=== PATIENT | female | born 1955 | race Caucasian/White ===

== ENCOUNTER 2016-09-16 13:06 | Emergency (ER) | payer MEDICAID ==
[~2016-09-16] VITALS: Wt 71.5 kg
[2016-09-16] MEDS ORDERED: PENICILLIN G BENZ 1.2 MIL UNIT SYG IM ONE (13:30)
[2016-09-16] MEDS ORDERED: ACETAMINOPHEN 325 MG TAB PO ONE (13:30)
--- NOTE | 2016-09-16 14:12 | ERD ---
ER Documentation Chief Complaint Date/Time DATE: 09/16/16 TIME: 14:10 Chief Complaint THROAT PAIN, FEVER HPI Patient is a 61-year-old female with no past medical history who presents to the ED with sore throat, fever 1 day. She denies sick contacts. States that it hurts when she swallows. However does not have difficulty breathing or speaking. Denies chest pain or cough or shortness of breath. Denies abdominal pain, nausea, vomiting or diarrhea. Denies headache or dizziness, neck pain or neck stiffness. She has not taken any medication for symptoms. Denies leg pain or leg swelling. No other complaints ROS All systems reviewed and are negative except as per history of present illness. Allergies Allergies: Coded Allergies: No Known Drug Allergies (Verified Allergy, Unknown, 09/16/16) PMhx/Soc History of Surgery: No Anesthesia Reaction: No Hx Neurological Disorder: No Hx Respiratory Disorders: No Hx Cardiac Disorders: No Hx Psychiatric Problems: No Hx Miscellaneous Medical Probl: No Hx Alcohol Use: No Hx Substance Use: No Hx Tobacco Use: No Smoking Status: Never smoker FmHx Family History: No coronary disease, No diabetes, No other Physical Exam Vitals Vital Signs Date Time Temp Pulse Resp B/P Pulse Ox O2 Delivery O2 Flow Rate FiO2 09/16/16 13:08 100.3 91 18 148/71 95 Physical Exam GENERAL: Well-developed, well-nourished female. Appears in no acute distress. HEAD: Normocephalic, atraumatic. EYES: Pupils are equally reactive bilaterally. EOMs grossly intact. No conjunctival erythema. ENT: Moist mucous membranes. No uvula deviation. No kissing tonsils. No exudates. Slightly enlarged right tonsil with erythema NECK: Supple. No lymphadenopathy or thyromegaly. No meningismus. negative kernig. negative brudinski. LUNG: Clear to auscultation bilaterally. No rhonchi, wheezing, rales or coarse breath sounds. HEART: Regular rate and rhythm. No murmurs, rubs or gallops. Extremities: Equal pulses bilaterally. No peripheral clubbing, cyanosis or edema. No unilateral leg swelling. NEUROLOGIC: Alert and oriented. Moving all four extremities. 5/5 strength in all extremities. Normal speech. Steady gait. SKIN: Normal color. Warm and dry. No rashes or lesions. Capillary refill < 2 seconds Results 24 hrs Current Medications Medications (Trade) Dose Ordered Sig/Constantino Route PRN Reason Start Time Stop Time Status Last Admin Dose Admin Acetaminophen (Tylenol Tab) 650 mg ONCE ONCE PO 09/16/16 13:30 09/16/16 13:31 DC Penicillin G Benzathine (Bicillin La) 1,200,000 units ONCE ONCE IM 09/16/16 13:30 09/16/16 13:31 DC Procedures/MDM ER COURSE: I kept the patient and/or family informed of laboratory and diagnostic imaging results throughout the emergency room course. IMAGING STUDIES [place] [id number] Radiology Main Line: [phone] DIAGNOSTIC IMAGING REPORT Patient: ATUL KRISHNAMURTHY : 1955 Age: 61 Sex: F MR #: [id number] DOS: 09/16/16 1327 Ordering MD: SERGE SRINIVASAN PA-C Location: [facility] Room/Bed: PROCEDURE: CHEST 1VW CLINICAL INDICATION: Cough TECHNIQUE: Single frontal view of the chest was obtained COMPARISON: None. FINDINGS: The cardiac size is normal. Mild atherosclerotic calcifications are demonstrated. There is no pulmonary vascular congestion. The lungs are clear. No consolidation, effusion, or pneumothorax. Mild degenerative changes of the visualized osseous structures are visualized. IMPRESSION: 1. No acute cardiopulmonary process. 2. Atherosclerosis. RPTAT:PP .Jamie Aguilar MD, MD Date Time Electronically viewed and signed by .Jamie Aguilar MD, MD on 09/16/2016 14:18 .V/ CC: SERGE SRINIAVSAN PA-C MEDICATIONS penicillin 1.25 milliunits tolerated well with no adverse reaction, Tylenol 650 mg p.o. MEDICAL DECISION MAKING: This is a 61-year-old female with no past medical history who presents with sore throat and fever 1 day. Vital signs were reviewed. Patient is afebrile. Patient is not hypoxic. Patient has a temperature of 100.3 here in the ED. Patient is not toxic or ill-appearing. Patient likely has pharyngitis. Chest x -ray was ordered and was unremarkable. Low suspicion for peritonsillar abscess , mononucleosis, dental abscess. Low suspicion for pneumonia, PE, pneumothorax , ACS, epiglottitis, obstruction, TB, pertussis, meningitis, sepsis. At this point patient does not meet to be admitted and does not show signs of respiratory distress or dehydration. DISCHARGE: At this time, patient is stable for discharge and outpatient management with no new complaints during the ER course. Patient was sent home with Tylenol for pain. Patient will be discharged home with instructions to recheck for new or worsening symptoms such as fever, nausea, weakness, LOC and to follow up with primary care in the next 1-2 days. Patient was advised to return to the ER for any new or worsening symptoms. Plan was discussed and patient and/or family understands and agrees. Home instructions were given. Departure Diagnosis: Primary Impression: Pharyngitis Pharyngitis/tonsillitis etiology: unspecified etiology Qualified Code: J02.9 - Pharyngitis, unspecified etiology Condition: Stable SERGE SRINIVASAN PA-C Sep 16, 2016 14:12
--- NOTE | 2016-09-16 14:18 | RADRPT ---
PROCEDURE: CHEST 1VW CLINICAL INDICATION: Cough TECHNIQUE: Single frontal view of the chest was obtained COMPARISON: None. FINDINGS: The cardiac size is normal. Mild atherosclerotic calcifications are demonstrated. There is no pulmonary vascular congestion. The lungs are clear. No consolidation, effusion, or pneumothorax. Mild degenerative changes of the visualized osseous structures are visualized. IMPRESSION: 1. No acute cardiopulmonary process. 2. Atherosclerosis. RPTAT:PP .Jamie Aguilar MD, MD Date Time Electronically viewed and signed by .Jamie Aguilar MD, on 09/16/2016 14:18 .V/
[2016-09-16] MEDS ORDERED: ACET500C5 PO (14:28)
== END 2016-09-16 15:23 | disposition home or self-care (01) ==
LOC: FTE 13:06
DX: J02.9 Acute pharyngitis, unspecified (principal); R05 Cough
CPT/HCPCS: 71010; J0561; Z7610

== ENCOUNTER 2016-09-18 14:12 | Emergency (ER) | payer MEDICAID ==
[~2016-09-18] VITALS: Ht 152.4 cm; Wt 72.5 kg
[~2016-09-18 14:12] MED LIST: ACET500C5 PO
[2016-09-18 14:18] VITALS: Ht 152.4 cm; Wt 72.5 kg
[2016-09-18] MEDS ORDERED: IBUPROFEN LIQUID (PED) 20 MG/ML CUP PO STA (14:55)
[2016-09-18] MEDS ORDERED: IBUP100O10 PO (15:01)
--- NOTE | 2016-09-18 18:39 | ERD ---
ER Documentation Chief Complaint Date/Time DATE: 09/18/16 TIME: 18:30 Chief Complaint Complains of a fever x 2 days HPI 65-year-old female complaining of fever and sore throat 3 days. Patient was seen here 2 days ago for the same, was given penicillin GB injections in the ED , and Tylenol for home. Patient stated that both of fever and sore throat has not improved. She has trouble swallowing because of pain. Patient also reports feeling tired and has chills, as well as muscle ache and joint pain. Denies cough or runny nose. Denies shortness of breath. Denies abdominal pain , nausea, vomiting, or diarrhea. Denies headache or neck pain. Denies recent travels. Denies sick contact. ROS All systems reviewed and are negative except as per history of present illness. Medications Home Meds Active Scripts Ibuprofen (Ibuprofen) 100 Mg/5 Ml Oral.susp, 30 ML PO Q6H Y for PAIN AND OR ELEVATED TEMP, #480 ML Prov:SHARON ARANA [facility] 09/18/16 Acetaminophen* (Tylophen*) 500 Mg Capsule, 1 CAP PO Q6H Y for PAIN AND OR ELEVATED TEMP, #20 CAP Prov:SERGE SRINIVASAN PA-C 09/16/16 Allergies Allergies: Coded Allergies: No Known Drug Allergies (Verified Allergy, Unknown, 09/16/16) PMhx/Soc History of Surgery: No Anesthesia Reaction: No Hx Neurological Disorder: No Hx Respiratory Disorders: No Hx Cardiac Disorders: Yes (HTN) Hx Psychiatric Problems: No Hx Miscellaneous Medical Probl: No Hx Alcohol Use: No Hx Substance Use: No Hx Tobacco Use: No Smoking Status: Never smoker Physical Exam Vitals Vital Signs Date Time Temp Pulse Resp B/P Pulse Ox O2 Delivery O2 Flow Rate FiO2 09/18/16 14:18 101.1 85 20 163/74 95 Physical Exam General: Well-developed, well-nourished, conscious and coherent, in no distress Skin: Warm and dry without rash, good texture and turgor Head: Normocephalic without evidence of trauma Eyes: Sclera and conjunctivae normal; pupils equal, round, and reactive to light; extraocular movements are intact Ears: Canals are patent. Tympanic membranes are clear Nose/Face: Without rhinorrhea Mouth/throat: Mucous membranes are moist. Posterior pharynx mildly erythematous without exudates. Neck: Supple without meningismus. Submental glands enlarged and tender. Carotids are equal. Trachea midline. No bruits or JVD Chest: Normal AP diameter. Good expansion without retractions. Nontender. Lungs are clear to auscultate bilaterally with good tidal volume Heart: Regular rate and rhythm. No murmur, rub, or gallops heard Abdomen: Soft and nontender without masses, guarding, or rebound. Bowel sounds are active. No hepatosplenomegaly Back: Without spinal or CVA tenderness Extremities: Full range of motion. Good strength bilaterally. No clubbing, cyanosis, or edema. Peripheral pulses are intact. Sensation intact Neuro: Alert and oriented 4, GCS 15. Cranial nerves grossly intact. Motor and sensory exams nonfocal. Moves all extremities. Speech clear. Gait normal Results 24 hrs Current Medications Medications (Trade) Dose Ordered Sig/Constantino Route PRN Reason Start Time Stop Time Status Last Admin Dose Admin Ibuprofen (Motrin Liquid (Ped)) 600 mg ONCE STAT PO 09/18/16 14:55 09/18/16 14:57 DC 09/18/16 15:05 Procedures/MDM 61-year-old female presented ED with fever and sore throat. She was treated for strep pharyngitis 2 days ago, her symptoms had not resolved. I doubt that she has a bacterial infection. Her symptoms and exam findings are consistent with viral infection, especially mononucleosis. I doubt sepsis. I advised patient that fever should resolve in 5-7 days, but she may feel fatigue for several month. Patient given ibuprofen in the ED for fever and pain. Patient appears well, stable for discharge and outpatient management. Medical decision making shared with patient and family. Education provided to patient and family. Patient and family expressed understanding of the plan. Medications on discharge: Ibuprofen. Follow-up: Primary care provider in 2-3 days or return to ED if worse. Departure Diagnosis: Primary Impression: Viral pharyngitis Condition: Stable Patient Instructions: Mononucleosis [facility] Usted se cole hecho un examen mdico de control que le indica que no est en mary anne condicin que requiera tratamiento urgente en el Departamento de Emergencia. Un estudio ms profundo y el tratamiento de juan condicin pueden esperar sin ningn riesgo hasta que usted sea atendida/o en el consultorio de juan mdico o mary anne cl bibiana. Es responsabilidad suya arreglar mary anne sd para el seguimiento del fidencio. MANEJO DE CONDICIONES NO URGENTES EN EL FUTURO 1) Si usted tiene un mdico de atencin primaria: Usted debera llamar a juan mdico de atencin primaria antes de venir al departamento de emergencia. Despus de las horas de consultorio, juan doctor o juan asociado/a est disponible por telfono. El mdico o enfermero de shravan en el servicio telefnico puede asesorarle por mya medio para atender el problema, o fidencio contrario se puede programar mary anne sd. 2) Si usted no tiene un mdico de atencin primaria: Llame al mdico o clnica de referencia que aparece abajo belkis las horas de consultorio para hacer mary anne sd para que le vean. CLINICAS: [facility] [phone] [facility] [facility] [phone] [facility]. [facility] [phone] [id number] [facility]. [place] [id number] [phone] [facility]. [place] [phone] [facility]. [phone] [address] Additional Instructions: Call your primary care doctor TOMORROW for an appointment during the next 2-3 days.See the doctor sooner or return here if your condition worsens before your appointment time. SHARON ARANA NP Sep 18, 2016 18:39
== END 2016-09-18 15:30 | disposition home or self-care (01) ==
LOC: FTE 14:12
DX: J02.8 Acute pharyngitis due to other specified organisms (principal); B97.89 Other viral agents as the cause of diseases classified elsewhere; I10 Essential (primary) hypertension
CPT/HCPCS: Z7502; Z7610; 99283